=== PATIENT | male | born 1990 | race Asian ===

== ENCOUNTER 2022-11-16 08:25 | Emergency (ER) | payer BC ==
--- NOTE | 2022-11-16 08:47 | EDPHYS ---
Physician Documentation [facility] Name: Nasim Huerta Age: 32 yrs Sex: Male : 1990 Arrival Date: 11/16/2022 Time: 08:25 Bed 12 Private MD: HAIR Physician Pasquale Dean HPI: 11/16 08:48 This 32 yrs old Male presents to ER via Ambulatory with complaints of Leg Pain. sb4 08:48 The patient presents with an injury. The complaints affect the right calf. Context: The sb4 problem was sustained outdoors, resulted from playing sports, Tennis, the patient can fully bear weight, the patient is able to ambulate, without difficulty. Onset: The symptoms/episode began/occurred last week. Modifying factors: The symptoms are alleviated by remaining still, the symptoms are aggravated by weight bearing. 32 year old male no pmh presents with complaints of right calf pain. states he feels that he pulled a muscle playing tennis last week. he is having pain especially when he goes up stairs. Historical: - Allergies: 08:50 No Known Allergies; ll1 - PMHx: 08:50 None; ll1 - PSHx: 08:50 None; ll1 - Immunization history:: Client reports receiving the 2nd dose of the Covid vaccine. - Social history:: Smoking status: Patient denies any tobacco usage or history of. ROS: 08:48 Constitutional: Negative for fever, chills, and weight loss. sb4 08:48 MS/extremity: Positive for injury or acute deformity, pain, of the right calf. Exam: 08:48 Constitutional: This is a well developed, well nourished patient who is awake, alert, sb4 and in no acute distress. Head/Face: Normocephalic, atraumatic. Eyes: Extra-ocular motions intact. Periorbital areas with no swelling, redness, or edema. Skin: Warm, dry with normal turgor. Normal color with no rashes, no lesions, and no evidence of cellulitis. MS/ Extremity: Pulses equal, no cyanosis. Neurovascular intact. Full, normal range of motion. Vital Signs: 08:37 BP 131 / 74; Pulse 83; Resp 16; Temp 97.3; Pulse Ox 98% on R/A; ll1 MDM: 08:30 Patient medically screened. sb4 08:48 Differential diagnosis: tendonitis, fracture, DVT, muscle strain, tendon rupture, sb4 dislocation. Data reviewed: vital signs, nurses notes, and as a result, I will discharge patient. Test considered but Not performed: X-ray: bony injury not suspected. Historians other than the Patient: Friend: friend. Counseling: I had a detailed discussion with the patient and/or guardian regarding: the historical points, exam findings, and any diagnostic results supporting the discharge/admit diagnosis, to return to the emergency department if symptoms worsen or persist or if there are any questions or concerns that arise at home. ED course: discussed with patient via [employer] manager that this is most likely a muscle strain of his calf and will take a few weeks to fully heal. there is no indication for imaging at this time. he understands. Administered Medications: No medications were administered Disposition: 16:32 Co-signature as Attending Physician, Pasquale Dean MD I reviewed the patient's care rt provided by the Advanced Practice Provider and agree with the diagnosis and treatment plan. Disposition Summary: 11/16/22 08:47 Discharge Ordered Location: Home sb4 Problem: an ongoing problem sb4 Symptoms: are unchanged sb4 Condition: Stable sb4 Diagnosis - muscle strain of right calf sb4 Followup: sb4 - With: Private Physician - When: As needed - Reason: Recheck today's complaints, Continuance of care, Re-evaluation by your physician Discharge Instructions: - Discharge Summary Sheet sb4 - Muscle Strain, [id number] sb4 Forms: - Medication Reconciliation Form sb4 - Thank You Letter sb4 - Antibiotic Education sb4 - Prescription Opioid Use sb4 - Patient Portal Instructions sb4 Prescriptions: - orphenadrine citrate 100 mg Oral Tablet Sustained Release - take 1 tablet by ORAL route 2 times per day As needed; 20 tablet; Refills: 0, sb4 Product Selection Permitted Signatures: Lj Cloud RN RN ll1 Nikky Power PA-C PA-C sb4 Pasquale Dean MD MD rt
--- NOTE | 2022-11-16 08:47 | ER ---
Nurse's Notes [facility] Name: Nasim Huerta Age: 32 yrs Sex: Male : 1990 Arrival Date: 11/16/2022 Time: 08:25 Bed 12 Private MD: Diagnosis: muscle strain of right calf Presentation: 11/16 08:37 Initial Sepsis Screen: Does the patient meet any 2 criteria? No. Patient's initial ll1 sepsis screen is negative. Does the patient have a suspected source of infection? Yes: Bone or joint infection. 08:37 Method Of Arrival: Ambulatory ll1 08:37 Acuity: ELMO 4 ll1 08:48 Chief complaint: Patient states: R calf tenderness since Monday after playing tennis. ll1 Coronavirus screen: Vaccine status: Patient reports receiving the 2nd dose of the covid vaccine. Client denies travel out of the [place] in the last 14 days. At this time, the client does not indicate any symptoms associated with coronavirus-19. Ebola Screen: Patient denies travel to an Ebola-affected area in the 21 days before illness onset. Risk Assessment: Do you want to hurt yourself or someone else? Patient reports no desire to harm self or others. Onset of symptoms was November 13, 2022. Triage Assessment: 08:50 General: Appears in no apparent distress. Behavior is calm, cooperative, appropriate ll1 for age. Pain: Complains of pain in right leg Quality of pain is described as aching. Musculoskeletal: Circulation, motion, and sensation intact. Capillary refill < 3 seconds, Reports pain in right leg. Historical: - Allergies: 08:50 No Known Allergies; ll1 - PMHx: 08:50 None; ll1 - PSHx: 08:50 None; ll1 - Immunization history:: Client reports receiving the 2nd dose of the Covid vaccine. - Social history:: Smoking status: Patient denies any tobacco usage or history of. Vital Signs: 08:37 BP 131 / 74; Pulse 83; Resp 16; Temp 97.3; Pulse Ox 98% on R/A; ll1 ED Course: 08:29 Patient arrived in ED. mr 08:30 Nikky Power [facility] sb4 08:30 Pasquale Dean MD is Attending Physician. sb4 08:37 Arm band placed on Patient placed in an exam room, on a stretcher. ll1 08:38 Triage completed. ll1 Administered Medications: No medications were administered Outcome: 08:47 Discharge ordered by . sb4 09:13 Patient left the ED. ll1 Signatures: Daniela Ferrell Lynsay, RN RN ll1 Nikky Power, PAElaina PAElaina sb4
[2022-11-16 09:17] VITALS: BP 131/74; TEMP 97.3; O2SAT 98
== END 2022-11-16 09:13 | disposition home or self-care (01) ==
LOC: ER 08:25
DX: S86.811A Strain of other muscle(s) and tendon(s) at lower leg level, right leg, initial encounter (principal)
CPT/HCPCS: 99281